=== PATIENT | male | born 1970 | race Native Hawaiian/Other Pacific Islander ===

== ENCOUNTER 2016-06-10 14:08 | Emergency (ER) | payer MEDICAID, OTHER ==
[~2016-06-10] VITALS: Ht 182.9 cm; Wt 90.0 kg
[~2016-06-10 14:08] MED LIST: ENDO7.5T10 PO
[2016-06-10 14:12] VITALS: BP 149/105; PULSE 90; RESP 16; TEMP 98.2; O2SAT 97
--- NOTE | 2016-06-10 14:34 | PD ---
HPI Chief Complaint: Pain: Acute or Chronic Time Seen by Provider: 14:14 Travel History International Travel<30 days: No Contact w/Intl Traveler<30days: No Traveled to known affect area: No History of Present Illness HPI 46yo M with PMH of chronic back pain was transferred from [facility] after MRI LS and discussion with our neurosurgeon Dr. White. Pt has had left sciatic pain for 3 weeks and also with urinary complaints such as difficulty starting urination. Pt states he had a surgery of his lumbar spine [address] White and had complications. Pt was given narcotics at [facility] and states that the pain is currently controlled. MRI LS showed subarticular disk extrusion compresses at least the traversing left L5 nerve foot worsened since 08/16/2014. At L5-S1, large inferiorly extending left subarticular disk extrusion contributes to severe spinal canal stenosis and compression of at least the traversing left S1 and likely S2 nerve roots. PFSH Past Medical History Arthritis: No Asthma: No Anxiety: No Depression: No Heart Rhythm Problems: No Cancer: No High Cholesterol: No Chemotherapy: No Chest Pain: No Congestive Heart Failure: No COPD: No Cerebrovascular Accident: No Diabetes: No Endocrine: No GERD: No Kidney Stones: No Musculoskeletal: Yes (LEFT COLLAR BONE FX,T12,L1,L4,5 HERNIATED DISCS) Migraines: No Radiation Therapy: No Renal Failure: No Seizures: No Sickle Cell Disease: No Sleep Apnea: No Thyroid Disease: No Ulcer: No ?: Not Past Surgical History Abdominal Surgery: No Arteriovenous Shunt: No Cardiac Surgery: No Ear Surgery: No Endocrine Surgery: No Eye Surgery: No Genitourinary Surgery: No Oral Surgery: No Pacemaker: No Thoracic Surgery: No Other Surgery: Yes (PENILE 1996) Social History Alcohol Use: Yes (OCC.) Tobacco Use: Yes (4-5 CIG/DAY) Substance Use: No Allergies-Medications (Allergen,Severity, Reaction): Coded Allergies: No Known Allergies (Unverified , 06/10/16) Reported Meds & Prescriptions Reported Meds & Active Scripts Active Zantac (Ranitidine HCl) 150 Mg Tab 150 Mg PO BID Robaxin (Methocarbamol) 500 Mg Tab 500 Mg PO TID PRN Medrol Dosepak (Methylprednisolone) 4 Mg Dspk 4 Mg PO DIRECTED Per Pharmacist direction Gabapentin 300 Mg Cap 300 Mg PO TID Reported Endocet 7.5/325 (Oxycodone/Acetaminophen) Tab 1 Tab PO Q4 PRN Review of Systems Except as stated in HPI: all other systems reviewed are Neg Physical Exam Narrative GENERAL: 46yo M not in distress. SKIN: Warm and dry. HEAD: Atraumatic. Normocephalic. EYES: Pupils equal and round. No scleral icterus. No injection or drainage. ENT: No nasal bleeding or discharge. Mucous membranes pink and moist. NECK: Trachea midline. No JVD. CARDIOVASCULAR: Regular rate and rhythm. No murmur appreciated. RESPIRATORY: No accessory muscle use. Clear to auscultation. Breath sounds equal bilaterally. GASTROINTESTINAL: Abdomen soft, non-tender, nondistended. Hepatic and splenic margins not palpable. MUSCULOSKELETAL: No obvious deformities. No clubbing. No cyanosis. No edema. NEUROLOGICAL: Awake and alert. No obvious cranial nerve deficits. Motor grossly within normal limits. Normal speech. Decreased sensation posterior left femur, lateral fibula and plantar aspect of left foot. PSYCHIATRIC: Appropriate mood and affect; insight and judgment normal. Data Data Last Documented VS Vital Signs Date Time Temp Pulse Resp B/P Pulse Ox O2 Delivery O2 Flow Rate FiO2 06/10/16 14:12 98.2 90 16 149/105 97 Orders Admit Order (Ed Use Only) (06/10/16 15:09) [facility] Medical Decision Making Medical Screen Exam Complete: Yes Emergency Medical Condition: Yes Differential Diagnosis Nerve root compression vs. cauda equina syndrome Narrative Course 46yo M with left posterior leg pain and numbness as well as urinary complaints was sent here from [facility] with MRI concerning for nerve root compression. Dr. White was the accepting physician and came to evaluate the patient. Pt had labs drawn which I reviewed. No leukocytosis. H/H stable. Normal platelet. CMP unremarkable. MRI was reviewed by Dr. White and I saw them as well. Pt is accepted to Dr. White's service and plan is for him to go to the OR for surgery. I was informed by neurosurgeon Dr. White that pt is refusing surgery. Pt is physically still in the ED so will be leaving against medical advice from the ED. The risks has been explicitly explained by the neurosurgeon and prescriptions were written by him. The risks of leaving against medical advice without further evaluation treatment were discussed with the patient. These risks include cardiac dysfunction, cardiac dysrhythmia, possible heart attack, possible stroke or . The patient indicated understanding of these risks and appeared to have the capacity to make this decision. Diagnosis Primary Impression: Nerve compression Admitting Information Admitting Physician Requests: Admit Patient Instructions: General Instructions Departure Forms: Tests/Procedures Additional Instructions: Return to the ED if you change your mind. Scripts Ranitidine (Zantac)150 Mg [id number] Mg PO BID #60 TAB Ref 0 Prov:Lance White MD 06/10/16 Methocarbamol (Robaxin)500 Mg [id number] Mg PO TID PRN (SPASM) #60 TAB Ref 0 Prov:Lance White MD 06/10/16 Methylprednisolone Dosepak (Medrol Dosepak)4 Mg Dspk4 Mg PO DIRECTED #1 DSPK Ref 0 Per Pharmacist direction Prov:Lance White MD 06/10/16 Gabapentin 300 Mg [id number] Mg PO TID #90 CAP Ref 1 Prov:Lance White MD 06/10/16 Disposition: 07 AGAINST MEDICAL ADVICE Condition: Stable GerryPaige DO Jun 10, 2016 14:34
--- NOTE | 2016-06-10 16:26 | PD.CONS ---
History of Present Illness Service Neurosurgery Consult Requested By Patient transfer from [facility] for neurosurgical evaluation Reason for Consult Lumbar disc herniation Primary Care Physician No Primary Care Physician Diagnoses: History of Present Illness 46-year-old gentleman known to the undersigned. He initially presented to [facility] in 2012 with onset of low back and lower extremity pain. At that time he had a relatively mild L3 4 disc displacement. He was treated with epidural steroid injections. He returned to the hospital in early 2013 with a rather large acute L4 5 herniated nucleus pulposis for which he underwent left L4 5 microdiscectomy in May 2013. His postoperative course was complicated by a rather rapid reherniation of the L4 5 disc. He continued to have low for extremity pain as well as numbness. He elected to continue conservative treatment and underwent additional epidural steroid injections as well as a prolonged course of physical therapy including 6 months of therapy in [facility]. 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 He states that approximately 3 weeks ago he awoke with severe recurrent left lower extremity pain as well as weakness in the left leg. The numbness in the left leg has not significantly changed compared to his baseline. The pain has gradually subsided but he is left with numbness and weakness in the left leg. He also has noted urinary hesitancy and has to sit down to urinate. No urinary incontinence. No difficulty with bowel control. Review of Systems Constitutional: DENIES: Fever Respiratory: DENIES: Cough, Shortness of breath Cardiovascular: DENIES: Chest pain, Palpitations Gastrointestinal: DENIES: Abdominal pain, Constipation, Diarrhea, Nausea Genitourinary: DENIES: Urinary incontinence, Urgency, Hematuria Musculoskeletal: COMPLAINS OF: Joint pain, Muscle aches, Stiffness, Back pain, DENIES: Neck pain Neurologic: COMPLAINS OF: Abnormal gait Psychiatric: DENIES: Anxiety, Depression Past Family Social History Allergies: Coded Allergies: No Known Allergies (Unverified , 06/10/16) Past Medical History Negative cardiac or pulmonary disease, diabetes, hypertension Past Surgical History 2012: L4 5 laminectomy Reported Medications Reported Meds & Active Scripts Active Reported Endocet 7.5/325 (Oxycodone/Acetaminophen) Tab 1 Tab PO Q4 PRN Social History Smokes approximately half pack cigarettes per day. No significant alcohol use Physical Exam Vital Signs Vital Signs Date Time Temp Pulse Resp B/P Pulse Ox O2 Delivery O2 Flow Rate FiO2 06/10/16 14:12 98.2 90 16 149/105 97 Physical Exam GENERAL: This is a well-nourished, well-developed patient, appears somewhat uncomfortable during the examination SKIN: No rashes, ecchymoses or lesions. Cool and dry. EYES: Sclerae are clear and nonicteric. ENT: Oropharynx clear. NECK: Supple, nontender, no meningeal signs. CARDIOVASCULAR: Regular rate and rhythm without murmurs, gallops, or rubs. RESPIRATORY: Clear to auscultation. Breath sounds equal bilaterally. No wheezes , rales, or rhonchi. GASTROINTESTINAL: Abdomen soft, non-tender, nondistended. No hepato-splenomegaly , or palpable masses. No guarding. MUSCULOSKELETAL: Extremities without cyanosis, or edema. No joint tenderness. Posterior tibial pulse 2+ bilateral NEUROLOGICAL: Sensation intact to light touch in the right lower extremity Moderate decreased sensation with paresthesias to light touch in the L5 greater than S1 distribution of the left thigh calf and foot Motor: 5/5 right lower extremity major flexion and extension groups Motor 3+/5 left hip abductors, 5/5 quadriceps and hamstrings, 4/5 tibialis anterior, peroneus longus and brevis, 4+/5 tibialis posterior, gastrocsoleus, 3/ 5 extensor hallucis longus, flexor digitorum Imaging 06/10/2016 MRI lumbar spine [facility] images are reviewed with the patient. The study reveals mostly mild to moderate decrease in intensity and loss of intervertebral height at the L4 5 and L5-S1 levels. There is a prominent central to left L4 5 and L5-S1 sequestered disc herniation with approximately 50 % canal compromise and significant compression on the left L5 and S1 nerve roots. Assessment and Plan Assessment and Plan Impression: 1. L4 5 and L5-S1 herniated nucleus pulposus. 2. Left L5 and S1 radiculopathy with sensory motor deficit Plan: The MRI images were reviewed with the patient. His previous postoperative MRI report was reviewed. The prior images are not available, however the previous MRI per report appears to be very similar to the present MRI. I advised him that due to the significant weakness that he is developed in the left leg over the past 3 weeks, as well as a question of some bladder dysfunction with urinary retention, it would be best to proceed with surgical intervention on an urgent basis for L4 5 and L5-S1 microdiscectomy for nerve decompression. I advised him that without surgery, there may be an increased chance of permanent neurologic deficit including loss of bladder function and permanent weakness in the left leg affecting his gait. He appears to understand all of the above. He is very adamant that he does not wish to have surgery. He appears to fully understand the risk of progressive neurologic dysfunction including cauda equina syndrome. He states that he wishes to proceed with epidural steroid injections and medications. I cautioned him that while these treatments may help his pain, they would not be expected to help decrease the pressure on the nerves or reduce the risk of further and permanent neurologic deficit. He has requested that we arrange outpatient epidural steroid injections for him. He is given a steroid Dosepak and a trial of gabapentin. Signs and symptoms to watch for fully discussed. Findings were discussed with emergency room physician. A follow-up post void bladder scan is recommended. Lance White MD Jun 10, 2016 16:26
[2016-06-10] MEDS ORDERED: ROBA500T PO (16:28)
[2016-06-10] MEDS ORDERED: GABA300C5 PO (16:28)
[2016-06-10] MEDS ORDERED: MEDR4PAK PO (16:28)
[2016-06-10] MEDS ORDERED: ZANT150T2 PO (16:28)
[2016-06-10] MEDS ORDERED: HYDROmorphone HCL PF 2 MG/ML VIAL IV PUSH ONE (17:15)
[2016-06-27] MEDS ORDERED: METH4PAK (12:44)
== END 2016-06-10 18:43 | disposition home or self-care (01) ==
LOC: NEPA 14:08 → UNDOADMIN 15:14 → NEDA 15:14 → UNDODISIN 18:43 → NEPA 18:43 → UNDODEPER 06-11 03:23
DX: M51.16 Intervertebral disc disorders with radiculopathy, lumbar region (principal); M48.07 Spinal stenosis, lumbosacral region; I10 Essential (primary) hypertension; R39.11 Hesitancy of micturition; F17.210 Nicotine dependence, cigarettes, uncomplicated
CPT/HCPCS: 96374; J1170